=== PATIENT | male | born 1940 | race Caucasian/White ===

== ENCOUNTER 2020-02-24 18:54 | Observation (INO) ==
[2020-02-24] MEDS ORDERED: ONDANSETRON 4 MG/2 ML VIAL IV STA (19:34)
[2020-02-24] MEDS ORDERED: SODIUM CHLORIDE 0.9% 1,000 ML IV STA (19:34)
[2020-02-24 20:30] LABS: Basophils % 0.3 % (0.0-0.8); Eosinophils % 0.1 % (0.00-10.9); Hematocrit 41.4 VOL% (42.0-52.0); Hemoglobin 14.4 GM/DL (14.0-18.0); Immature Granulocytes % 0.3 %; Immature Granulocytes Absolute 0.03 #; Lymphocytes # 0.4 10*3/uL (1.4-4.0); Lymphocytes % 4.2 % (21.2-54.2); Mean Corpuscular HGB Conc 34.8 GM/DL (32-36); Mean Corpuscular Volume 85.5 FL (87-102); Mean Platelet Volume 10.2 FL (9.6-12.0); Monocytes % 4.5 % (1.7-12.7); Neutrophils % 90.6 % (38.7-73.9); Platelet Count 192 T/CUMM (130-400); Red Blood Count 4.84 MC/CUMM (3.8-5.5); Red Cell Distribution Width 12.7 % (9.3-17.3); White Blood Count 8.6 T/CUMM (4-12)
[2020-02-24 20:48] LABS: Calcium 9.7 MG/DL (8.5-10.1); Osmolality,Calculated 284.1 MOS/KG (273-304); Total Protein 7.9 G/DL (6.4-8.3)
[2020-02-24 21:28] LABS: Band Neutrophils 2 % (0-10); Lymphocytes 4 % (20-55); Segmented Neutrophils 92 % (50-85); Total Cells Counted 100
[2020-02-24 21:29] LABS: Platelet Estimate Adequate
[2020-02-24] MEDS ORDERED: ONDANSETRON 4 MG/2 ML VIAL IV PRN (21:44)
[2020-02-24] MEDS: DEXTROSE 5% NACL 0.45% 1,000 ML IV SCH (22:29)
[2020-02-25 01:43] LABS: Basophils % 0.3 % (0.0-0.8); Eosinophils % 0.3 % (0.00-10.9); Hematocrit 37.9 VOL% (42.0-52.0); Hemoglobin 12.9 GM/DL (14.0-18.0); Immature Granulocytes % 0.3 %; Immature Granulocytes Absolute 0.02 #; Lymphocytes # 0.5 10*3/uL (1.4-4.0); Lymphocytes % 8.6 % (21.2-54.2); Mean Corpuscular Volume 87.1 FL (87-102); Mean Platelet Volume 9.7 FL (9.6-12.0); Neutrophils % 83.5 % (38.7-73.9); Platelet Count 176 T/CUMM (130-400); Red Blood Count 4.35 MC/CUMM (3.8-5.5); Red Cell Distribution Width 12.8 % (9.3-17.3); White Blood Count 6.3 T/CUMM (4-12)
[2020-02-25 02:14] LABS: Albumin 3.3 G/DL (3.4-5.0); Bilirubin,Total 0.5 MG/DL (0.2-1.0); Calcium 8.9 MG/DL (8.5-10.1); Osmolality,Calculated 285.7 MOS/KG (273-304)
[2020-02-25] MEDS: PANTOPRAZOLE 40 MG VIAL IV SCH (09:29)
[2020-02-25] MEDS: DEXTROSE 5% NACL 0.45% 1,000 ML IV SCH ×2 (10:16→19:52)
[2020-02-25 17:17] LABS: Bilirubin,Urine Negative (Negative); Blood, Urine Negative (Negative); Glucose,Urine (UA) Negative (Negative); Hyaline Casts,Urine 1 /LPF (0-3); Ketones,Urine Negative (Negative); Nitrite,Urine Negative (Negative); Protein,Urine Negative; RBC,Urine 1 /HPF (0-4); Urine Appearance CLEAR (Clear); Urine Color Yellow (Yellow); Urine Specific Gravity 1.016 (1.001-1.035); WBC,Urine 1 /HPF (0-6)
[2020-02-26] MEDS: DEXTROSE 5% NACL 0.45% 1,000 ML IV SCH (06:04)
[2020-02-26 06:36] LABS: Basophils % 0.4 % (0.0-0.8); Eosinophils # 0.2 10*3/uL (0.0-0.87); Eosinophils % 3.9 % (0.00-10.9); Hematocrit 32.2 VOL% (42.0-52.0); Immature Granulocytes % 0.2 %; Immature Granulocytes Absolute 0.01 #; Lymphocytes # 1.3 10*3/uL (1.4-4.0); Mean Corpuscular HGB Conc 34.2 GM/DL (32-36); Monocytes % 14.2 % (1.7-12.7); Neutrophils % 56.3 % (38.7-73.9); Platelet Count 167 T/CUMM (130-400); Red Cell Distribution Width 12.5 % (9.3-17.3); White Blood Count 5.4 T/CUMM (4-12)
[2020-02-26 06:51] LABS: Calcium 8.4 MG/DL (8.5-10.1); Osmolality,Calculated 278.7 MOS/KG (273-304)
[2020-02-26] MEDS ORDERED: carvediloL 12.5 MG TABLET PO SCH (08:00)
[2020-02-26] MEDS ORDERED: FUROSEMIDE 40 MG TABLET PO SCH (08:00)
[2020-02-26 08:12] LABS: Anisocytosis Slight; Band Neutrophils 4 % (0-10); Eosinophils 4 % (0-10); Lymphocytes 20 % (20-55); Platelet Estimate Normal; Segmented Neutrophils 56 % (50-85); Total Cells Counted 100
[2020-02-26] MEDS ORDERED: SPIRONOLACTONE 25 MG TABLET PO SCH (09:00)
[2020-02-26] MEDS ORDERED: ASPIRIN EC 81 MG TABLET PO SCH (09:00)
[2020-02-26] MEDS ORDERED: INSULIN GLARGINE 100 UNIT/ML SUBCUT SCH (09:00)
[2020-02-26] MEDS ORDERED: CLOPIDOGREL 75 MG TABLET PO SCH (09:00)
[2020-02-26] MEDS: PANTOPRAZOLE 40 MG VIAL IV SCH (09:10)
[2020-02-26 12:33] VITALS: BP 143/65
== END 2020-02-26 15:01 | disposition home or self-care (01) ==
LOC: N.ED 18:54 → N.EDINP 18:54 → N.TELES 22:39
PROVIDERS: ADMIT Family Medicine; ATTEND Family Medicine